=== PATIENT | female | born 1980 | race African-American/Black ===

== ENCOUNTER 2017-03-27 22:30 | Emergency (ER) | payer SELFPAY ==
[~2017-03-27] VITALS: Ht 157.5 cm; Wt 53.5 kg
--- NOTE | 2017-03-27 23:43 | NUR ---
Pt seen by MD for complaints of sore throat. Pt stable for discharge per MD. Pt given ACI. PT verbalized understanding of dc instructions. Pt ambulated out of er with steady gait.
[2017-03-27 23:45] VITALS: BP 102/58
== END 2017-03-27 23:45 | disposition home or self-care (01) ==
LOC: ER 22:36
DX: J04.0 Acute laryngitis (principal); F41.9 Anxiety disorder, unspecified; Z88.8 Allergy status to other drugs, medicaments and biological substances
CPT/HCPCS: A4663

== ENCOUNTER 2017-04-10 22:18 | Emergency (ER) | payer SELFPAY ==
[~2017-04-10] VITALS: Ht 157.5 cm; Wt 53.5 kg
--- NOTE | 2017-04-10 22:37 | NUR ---
Patient discharged to home in stable conditon. Written and verbal after care instructions given. Patient verbalizes understanding of instructions.
== END 2017-04-10 22:38 | disposition home or self-care (01) ==
LOC: ER 22:19
DX: J02.9 Acute pharyngitis, unspecified (principal); H92.02 Otalgia, left ear; F41.9 Anxiety disorder, unspecified; Z88.8 Allergy status to other drugs, medicaments and biological substances; Z90.49 Acquired absence of other specified parts of digestive tract
CPT/HCPCS: A4663

== ENCOUNTER 2017-11-28 17:09 | Emergency (ER) | payer OTHER ==
[~2017-11-28] VITALS: Ht 157.5 cm; Wt 54.4 kg
--- NOTE | 2017-11-28 18:22 | NUR ---
Patient discharged to home in stable conditon. Written and verbal after care instructions given. Patient verbalizes understanding of instructions.PT WALKS IN STEADY GAIT
== END 2017-11-28 18:23 | disposition home or self-care (01) ==
LOC: ER 17:11
DX: J20.9 Acute bronchitis, unspecified (principal); Z90.49 Acquired absence of other specified parts of digestive tract; Z88.8 Allergy status to other drugs, medicaments and biological substances
CPT/HCPCS: 99283; A4663

== ENCOUNTER 2017-12-03 15:10 | Emergency (ER) | payer OTHER ==
[~2017-12-03] VITALS: Ht 157.5 cm; Wt 54.4 kg
[2017-12-03] MEDS ORDERED: ONDANSETRON ODT 4 MG TAB.RAPDIS ONE (15:55)
[2017-12-03] MEDS ORDERED: ONDANSETRON ODT 4 MG TAB.RAPDIS SL ONE (16:00)
--- NOTE | 2017-12-03 16:18 | NUR ---
Patient discharged to home in stable conditon. Written and verbal after care instructions given. Patient verbalizes understanding of instructions.pt says feels better. deneiss any nausea
== END 2017-12-03 16:18 | disposition home or self-care (01) ==
LOC: ER 15:11
DX: R11.2 Nausea with vomiting, unspecified (principal); Z90.49 Acquired absence of other specified parts of digestive tract; Z88.8 Allergy status to other drugs, medicaments and biological substances
CPT/HCPCS: A4663; Q0162

== ENCOUNTER 2017-12-08 09:00 | Emergency (ER) | payer OTHER ==
[~2017-12-08] VITALS: Ht 157.5 cm; Wt 54.4 kg
--- NOTE | 2017-12-08 09:16 | NUR ---
PT IN ROOM WITH SON AWAITING MD VILLAFUERTE.
[2017-12-08] MEDS ORDERED: ALBUTEROL SULFATE 2.5 MG/3 ML NEBU NEB ONE (09:30)
[2017-12-08] MEDS ORDERED: ALBUTEROL SULFATE 2.5 MG/3 ML NEBU ONE (09:34)
--- NOTE | 2017-12-08 09:35 | NUR ---
MSE COMPLETED, PT D/C'D HOME, ACI/RX X3 GIVEN. PT AMBULATED W/O DIFF/TOOK ALL BELONGINGS.
[2017-12-08 10:14] VITALS: BP 110/62
== END 2017-12-08 09:35 | disposition home or self-care (01) ==
LOC: ER 09:02
DX: J20.8 Acute bronchitis due to other specified organisms (principal); B96.89 Other specified bacterial agents as the cause of diseases classified elsewhere; Z88.8 Allergy status to other drugs, medicaments and biological substances
CPT/HCPCS: A4663

== ENCOUNTER 2017-12-25 12:50 | Emergency (ER) | payer OTHER ==
[~2017-12-25] VITALS: Ht 157.5 cm; Wt 54.4 kg
--- NOTE | 2017-12-25 13:38 | NUR ---
Patient discharged to home in stable conditon. Written and verbal after care instructions given. Patient verbalizes understanding of instructions.
[2017-12-25] MEDS ORDERED: predniSONE 50 MG TABLET PO ONE (13:45)
[2017-12-25] MEDS ORDERED: ACYCLOVIR 400 MG TABLET PO ONE (13:45)
== END 2017-12-25 13:39 | disposition home or self-care (01) ==
LOC: ER 12:50
DX: B02.9 Zoster without complications (principal); Z90.49 Acquired absence of other specified parts of digestive tract; Z88.8 Allergy status to other drugs, medicaments and biological substances